=== PATIENT | male | born 1965 | race Caucasian/White ===

== ENCOUNTER 2016-10-29 10:58 | Emergency (ER) | payer OTHER ==
[~2016-10-29] VITALS: Ht 188 cm; Wt 85.3 kg
[2016-10-29 11:00] VITALS: BP 144/85
--- NOTE | 2016-10-29 12:51 | RAD ---
3 views right finger 10/29/2016 Clinical indication: Laceration across middle joint of the third finger. Comparison: None. Findings: No acute fracture or dislocation of the third digit. No radiopaque foreign body adjacent to the third digit. Impression: No acute third digit osseous abnormality or radiopaque foreign body identified.
[2016-10-29] MEDS: LIDOCAINE 2% 20 ML VIAL. IJ ONE (12:52)
--- NOTE | 2016-10-29 14:19 | PHYS DOC ---
General Chief Complaint: LACERATION/AVULSION Stated Complaint: LACERATION RIGHT HAND Time Seen by MD: 11:45 Source: patient Exam Limitations: no limitations Problems: History of Present Illness Initial Comments Patient is a 51-year-old male who comes to the ED complaining of right hand laceration. Patient states that prior to arrival he was helping his mother move some things at her home. While moving a ceramic vase he accidentally dropped it. In an attempt to catch the base he reached down quickly however he was not in time. Cut his right middle finger on broken ceramic lampshade medial right 3rd finger. There was no pulsatile bleeding but he states that there was quite a bit of blood. He has full range of motion of the digit and denies numbness tingling weakness or radiating symptoms. Tetanus status is up-to-date. Symptoms are worse with movement and relieved with rest no pre-arrival treatment aside from direct pressure. Onset: just prior to arrival Severity: moderate Pain/Injury Location: right 3rd finger Method of Injury: incised Modifying Factors: worse with jarring, worse with movement, improves with rest Allergies: Coded Allergies: No Known Drug Allergies (Unverified , 10/29/16) Past Medical History Medical History: other (pseudotumor left eye) Surgical History: noncontributory Social History Smoker: non-smoker Alcohol: occasionally Drugs: none Review of Systems Constitutional: denies chills, denies fever Respiratory: denies cough, denies shortness of breath Cardiovascular: denies chest pain, denies palpitations Gastrointestinal: denies nausea, denies vomiting Genitourinary: denies frequency, denies hematuria Musculoskeletal: see HPI, denies back pain, denies joint swelling, denies neck pain Skin: see HPI Psychiatric/Neurological: denies numbness, denies paresthesia, denies weakness Physical Exam General Appearance: WD/WN, no apparent distress Neck: non-tender, supple Cardiovascular/Respiratory: normal peripheral pulses, no respiratory distress Elbow/Forearm: normal inspection, non-tender Wrist: normal inspection, non-tender Hand: laceration (medial aspect of the right third finger at proximal interphalangeal joint there is a 2 cm superficial irregular laceration with a stellate pattern distally. Wound edges are There is oozing of blood no pulsatile or active bleeding. Flexor and extensor tendon complexes appear to be intact as do the collateral ligaments.) Neurologic/Tendon: normal sensation, normal motor functions, normal tendon functions, responds to pain, no evidence tendon injury Psychiatric: alert, oriented x 3 Skin: warm/dry (right third finger as above) Laceration/Wound Repair Laceration/Wound Repair : Wound Location: upper extremity (medial aspect right third finger) Wound's Depth, Shape: superficial, irregular, stellate Wound Length (cm): 2 Wound Explored: clean Irrigated w/ Saline (ccs): 100 Betadine Prep?: Yes Anesthesia: 1% Lidocaine Volume Anesthetic (ccs): 3 Wound Debrided: minimal Wound Repaired With: sutures Suture Size/Type: 4:0, nylon Number of Sutures: 4 Layer Closure?: No Sterile Dressing Applied?: Yes Splint Applied?: Yes Type of Splint Applied: metal finger splint Progress Informed consent obtained. The wound was soaked in Betasept for 15 minutes per the RN. I performed a digital block with 2% lidocaine no epinephrine and after achieving good anesthesia the wound edges were approximated with 4 4-0 Ethilon sutures. Patient tolerated the procedure well there were no complications estimated blood loss minimal. Sterile dressing was applied by the RN as well as a metal finger splint. The digit was neurovascularly intact after the splint placed. I discussed wound care see departure instructions. Departure Time of Disposition: 14:17 Disposition: 01 HOME, SELF-CARE Diagnosis: right 3rd finger laceration Condition: IMPROVED Patient Instructions: Sutured Wound Care, [id number] Additional Instructions: Wear metal finger splint until you follow-up with your doctor. Keep wound dry for 48 hours. Keep covered with sterile dressing until completely healed. After 48 hours may wash twice daily with soap and warm water, blot dry. Change dressing and apply Bactroban ointment after each wash. Allow the wound to air dry 1 hour daily. Prescription: Bactroban ointment Follow-up with your doctor in 10 days for a wound check and possible suture removal. Return to ED with new or changing symptoms MARÍA HOYT DO Oct 29, 2016 14:19
[2016-10-29] MEDS ORDERED: MUPI15CR TP (14:21)
[2016-10-29] MEDS: cefTRIAXone IM 1 GM VIAL IM ONE (15:18)
== END 2016-10-29 14:50 | disposition home or self-care (01) ==
LOC: ER 11:05
DX: S61.212A Laceration without foreign body of right middle finger without damage to nail, initial encounter (principal); W20.8XXA Other cause of strike by thrown, projected or falling object, initial encounter; Y93.89 Activity, other specified; Y99.8 Other external cause status; Y92.098 Other place in other non-institutional residence as the place of occurrence of the external cause
CPT/HCPCS: 12001; 73140; 99284-25; J2001